=== PATIENT | female | born 1980 | race Caucasian/White ===

== ENCOUNTER 2021-09-03 15:02 | Emergency (ER) | payer BC, SELFPAY ==
--- OUTSIDE RECORDS SUMMARY | 2021-09-03 15:05 | XMS REPORT | Continuity of Care Document ---
:1980 Author Organization [facility] t Address [address] [place] [address] Care Team Providers Name Role Phone Pcp, Does Not Have A Primary Care Physician Paul Smith NP Attending Clinician Georgina AVILES Attending Clinician Unavailable Payers Payer Name Policy Type Policy Number Effective Date Expiration Date [facility] [id number] 2020 PPO/POS 00:00:00 Problems Condition Condition Condition Status Onset Resolution Last Treating Co mments Source Name Details Category Date Date Treatment Clinician Date No known No known Disease Unive rs active active ity of problems problems [facility] Allergies, Adverse Reactions, Alerts Allergy Allergy Status Severity Reaction(s) Onset Inactive Treating Comm ents Source Name Type Date Date Clinician CODEINE DRUG Active Hives Univers INGREDI 9-03 ity of 00:00: [place] 00 Medical Branch Codeine Propensi Active Nausea Only 2005-06 Un holger ty to 2-28 ity of adverse 00:00: [place] reaction 00 Medical s Branch CODEINE DRUG Active NAUSEA ONLY 2005-06 Univ ers INGREDI 2- ity of 00:00: [place] 00 Medical Branch codeine Adverse Active rash [facility] Social History Social Habit Start Date Stop Date Quantity Comments Source Exposure to Not sure [facility] SARS-CoV-2 (event) Medica l Branch Sex Assigned At [birth year] [facility] [place] 00:00:00 00:00:00 Medical Branch Smoking Status Start Date Stop Date Source Unknown if ever smoked [facility] Medical Branch Medications Ordered Filled Start Stop Current Ordering Indication Dosage Frequency Signature Comments Components Source Medication Medication Date Date Medication? Clinician (SIG) Name Name cefTRIAXone 2020- No 1000mg 1,000 mg, Univers (ROCEPHIN) 02-08 IV ity of 1,000 mg in 02:45: 02:19 [place], [place] NaCl 0.9% 00 :00 ONCE, 1 Medical (NS) 50 mL dose, Wed Bran ch MINI-BAG 02/07/21 at 2145, Administer over 30 Minutes, 50 mL
Reas on for Anti-Infec tive: Documented Infection< br>Documen kathy Infection Site: Urine
D uration of Therapy: 7 days ketorolac 2020- No 30mg 30 mg, Unive rs (TORADOL) 02-08 Slow IV ity of injection 02:45: 01:53 [place], [place] 30 mg 00 :00 ONCE, 1 Medical dose, [facility] 02/07/21 at 2145, Routine
membership correspondent approving Restricted medication : MELIZA SMITH cefTRIAXone 2020- No 1000mg 1,000 mg, Univers (ROCEPHIN) 02-08 IV ity of 1,000 mg in 02:45: 02:19 [place], [place] NaCl 0.9% 00 :00 ONCE, 1 Medical (NS) 50 mL dose, [facility] Bran ch MINI-BAG 02/07/21 at 2145, Administer over 30 Minutes, 50 mL
Reas on for Anti-Infec tive: Documented Infection< br>Documen kathy Infection Site: Urine
D uration of Therapy: 7 days ketorolac 2020- No 30mg 30 mg, Unive rs (TORADOL) 02-08 Slow IV ity of injection 02:45: 01:53 [place], [place] 30 mg 00 :00 ONCE, 1 Medical dose, [facility] 02/07/21 at 2145, Routine
membership correspondent approving Restricted medication : MELIZA SMITH acetaminoph 2020- No 650mg 650 mg, U nivers en 02-08 Oral, ity of (TYLENOL) 00:30: 23:53 [place]CE[place] 1 [place] tablet 650 00 :00 dose, [facility] Medi sherif mg 02/07/21 at [place] [address], [facility] ibuprofen No 800mg 800 mg, Uni vers (IBU) 02-08 Oral, ity of tablet 800 00:30: 23:53 ONCE, 1 [place] as mg 00 :00 dose, [facility] 02/07/21 at [place] [address], [facility] acetaminoph No 650mg 650 mg, U nivers en 02-08 Oral, ity of (TYLENOL) 00:30: 23:53 [place]CE, 1 [place] tablet 650 00 :00 dose, [facility] Medi sherif mg 02/07/21 at [place] [address], [facility] ibuprofen 2020- No 800mg 800 mg, Uni vers (IBU) 02-08 Oral, ity of tablet 800 00:30: 23:53 ONCE, 1 [place] as mg 00 :00 dose, [facility] 02/07/21 at [place] [address], [facility] cefdinir 2020- No [id number] 300mg Take 1 U nivers 300 mg 02-07 capsule by ity of capsule 00:00: 04:59 mouth [place] 00 :00 every 12 Medical (twelve) Branch hours for 10 days. cefdinir 2020- No [id number] 300mg Take 1 U nivers 300 mg 02-07 capsule by ity of capsule 00:00: 04:59 mouth [place] 00 :00 every 12 Medical (twelve) Branch hours for 10 days. traMADoL 50 2020- No [id number] 50mg Take 1 Uni vers mg tablet 02-07 tablet by ity of 00:00: 04:59 mouth [place] 00 :00 every 6 Medical (six) Branch hours as needed for Pain (scale 4-6) or Pain (scale 7-10) for up to 7 days. Indication s: acute pain traMADoL 50 2020-2020- No 4647 50mg Take 1 Uni vers mg tablet 02-07 tablet by ity of 00:00: 04:59 mouth [place] 00 :00 every 6 Medical (six) Branch hours as needed for Pain (scale 4-6) or Pain (scale 7-10) for up to 7 days. Indication s: acute pain fluconazole 2020- No [id number] 150mg Take 1 Univers 150 mg 02-07 tablet by ity of tablet 00:00: 04:59 [place] 00 [place] now for 1 Medical dose. Branch fluconazole 2020- No [id number] 150mg Take 1 Univers 150 mg 02-07 tablet by ity of tablet 00:00: 04:59 [place] 00 :[place] now for 1 Medical dose. Branch Citalopram Citalopram Yes [place] take [address] [facility] Hydrobromid Hydrobromid [place] tablet by [facility] mouth once [facility] daily [facility] Levothyroxi Levothyroxi Yes [facility] take [address] [facility] ne Sodium ne Sodium [place] tablet by [facility] - mouth once Memoria daily [facility] Clinics Gabapentin Gabapentin Yes [place] [address] [facility] [place] [facility] Vital Signs Vital Name Observation Time Observation Value Comments Source Body temperature 2021-02-08 01:36:00 37 Michell [facility] Systolic blood 2021-02-08 00:19:00 96 mm[Hg] [facility] Diastolic blood 2021-02-08 00:19:00 63 mm[Hg] [facility] Heart rate 2021-02-08 00:19:00 98 /min [facility] Respiratory rate 2021-02-08 00:19:00 18 /min [facility] Oxygen saturation in 2021-02-08 00:19:00 98 /min [facility] Arterial blood by [facility] Pulse oximetry Branch Body weight 2021-02-07 21:50:00 52.164 kg [facility] Procedures Procedure Date / Time Performed Performing Clinician Sourlucie e URINALYSIS 2021-02-07 23:51:00 Meliza Smith [facility] COVID-19 (ID NOW RAPID 2021-02-07 23:51:00 [facility]iza Smith [facility] NOTICE OF PRIVACY 2021-02-07 21:34:13 Doctor Unassigned, No Univ [facility] PRACTICES Name Medical Branch CONSENT/REFUSAL FOR 2021-02-07 21:33:17 Doctor Unassigned, No [facility] AND Name Medical Branch TREATMENT Encounters Start End Encounter Admission Attending Care Care Encounter Source Date/Time Date/Time Type Type Clinicians Facility Department ID 2021-02-07 2021-02-07 [facility] [id number] Univers 16:52:00 21:35:00 Meliza Paul Hawkins [id number] ity [facility] [id number] [facility] [id number] [place] [id number] Branch 2021-02-07 2021-02-07 Emergency [facility] E[facility] [id number] Univers [facility]:33[facility]-02 2021-02-02 Emergency [facility] ERT [id number] Univers 14:36:00 15:00:[address] [facility] 2020-07-07 2020-07-07 Outpatient [facility] [id number] [facility] 2020-06-01 2020-06-01 Outpatient [facility] [id number] [facility] 2020-05-22 2020-05-22 Outpatient [facility]ML[facility] [id number] [facility] 2019-09-22 2019-09-22 [facility] [id number] [facility] 2019-05-17 2019-05-17 [facility] [id number] [facility] 13:20:00 13:20:00 [facility] Outpat[facility] Clinics Results Test Description Test Time Test Comments Results Result Comments Source CBC W/AUTO DIFF WITH PLATELETS 2021-09-01 09:03:53 Test Item Value Reference Range Interpretation Comme nts WBC (test code = 1001) 9.6 K/UL 3.5-11.0 RBC (test code = 1002) 4.00 M/UL 3.80-5.40 HEMOGLOBIN (test code = 12.4 G/DL 11.5-15.5 1003) HEMATOCRIT (test code = 36.2 % 34.0-45.0 1004) MCV (test code = 1005) 90.5 fL 80.0-99.0 MCH (test code = 1006) 31.0 PG 25.0-33.0 MCHC (test code = 1007) 34.3 G/DL 31.0-36.0 RDW (test code = 1038) 12.7 % 11.5-15.0 NEUTROPHILS (test code = 72.3 % 1008) LYMPHOCYTES (test code = 18.5 % 1010) MONOCYTES (test code = 1011) 6.8 % EOSINOPHILS (test code = 1.5 % 1012) BASOPHILS (test code = 1013) 0.4 % IMMATURE GRANULOCYTES (test 0.5 % code = 1036) NUCLEATED RBCS (test code = 0.0 /100 WBC'S See_Comment [Automated message] The 1065) system which ge nerated this result transmit kathy reference range : 0.0. The reference range was not used to interpr et this result as shaw l/abnormal. PLATELET COUNT (test code = 263 K/UL 796-299 1800) ABSOLUTE NEUTROPHILS (test 6.90 K/UL 1.50-7.50 code = 1066) ABSOLUTE LYMPHOCYTES (test 1.77 K/UL 1.00-4.00 code = 1067) ABSOLUTE MONOCYTES (test 0.65 K/UL 0.20-1.00 code = 1068) ABSOLUTE EOSINOPHILS (test 0.14 K/UL 0.00-0.50 code = 1040) ABSOLUTE BASOPHILS (test 0.04 K/UL 0.00-0.20 code = 1069) ABS IMMATURE GRANULOCYTES 0.05 K/UL 0.00-0.10 (test code = 1020) ABS NUCLEATED RBCS (test 0.00 K/UL 0.00-0.11 code = 15934) TSH, THIRD [id number] 05:52:44 Test Item Value Reference Range Interpretation Comments TSH, THIRD GENERATION (test code 3.400 UIU/ML 0.400-4.100 = 2821) COMPREHENSIVE METABOLIC [id number] 04:22:49 Test Item Value Reference Range Interpretation Comments GLUCOSE (test code = 82 MG/DL 70-99 2216) BUN (test code = 12 MG/DL 6-20 2207) CREATININE (test 0.67 MG/DL 0.60-1.30 code = 2214) eGFR (2020 CKD-EPI) 114 >60 (test code = 66240) ML/MIN/1.73 CALC BUN/CREAT (test 18 RATIO 6-28 code = 2235) SODIUM (test code = 140 MEQ/L 566-891 6706) POTASSIUM (test code 4.2 MEQ/L 3.5-5.4 = 2227) CHLORIDE (test code 101 MEQ/L 95-107 = 221) CARBON DIOXIDE (test 26 MEQ/L 19-31 code = 2206) CALCIUM (test code = 9.1 MG/DL 8.5-10.5 2208) PROTEIN, TOTAL (test 6.2 G/DL 6.1-8.3 code = 222) ALBUMIN (test code = 3.8 G/DL 3.5-5.2 2200) CALC GLOBULIN (test 2.4 G/DL 1.9-3.7 code = 2240) CALC A/G RATIO (test 1.6 RATIO 1.0-2.6 code = 2234) BILIRUBIN, TOTAL <0.2 MG/DL See_Comment [Automated message] (test code = 2207) The syste m which generated this result transmitted ref erence range: <=1.2. T he reference range was not used to int erpret this result as normal/abnormal . ALKALINE PHOSPHATASE 55 U/L 40-112 (test code = 2204) AST (test code = 18 U/L 9-40 2217) ALT (test code = 22 U/L 5-40 UNLE SS 2218) OTHERWISE INDIC ATED, ALL TESTING PER FORMED ATCLINICAL PATH [facility]LOG[facility]ATOR[facility], I [place]. [address] [facility] [place] [address] LABORATORY DIRE CTOR: LATA BOWLING M.D. CLIA NUMBER [id number] CAP ACCREDITATION N O. [id number] 01:15:35 Test Item Value Reference Range Interpretation Comments APPEARANCE (test code = Cloudy Clear A 5053928117) COLOR (test code = Yellow Yellow 3880078607) PH (test code = 4.8-8.0 4749626933) SP GRAVITY (test code = 1.003-1.030 2686228980) GLU U QUAL (test code = Normal Normal 1129469707) BLOOD (test code = 2+ Negative A 7137274734) KETONES (test code = Negative Negative 8511501566) PROTEIN (test code = 100 mg/dL Negative A 2887-8) UROBILIN (test code = 4.0 mg/dL Normal A 8521853192) BILIRUBIN (test code = Negative Negative 4373992683) NITRITE (test code = Negative Negative 7859923919) LEUK JOVANY (test code = 250/uL Negative A 0382251960) RBC/HPF (test code = See_Comment H [Autom ated message] 6740183708) The system [employer] generated this result transmit kathy reference range : 0 - 3 HPF. The refe rence range was not u sed to interpret th is result as normal/abnormal . WBC/HPF (test code = >182 See_Comment H [Autom ated message] 8714208870) The system [employer] generated this result transmit kathy reference range : 0 - 5 HPF. The refe rence range was not u sed to interpret th is result as normal/abnormal . BACTERIA (test code = Many Negative A 9179979345) MUCOUS (test code = Slight Negative LPF A 1207969769) AMORPHOUS (test code = Rare Rare HPF 9894268738) SQ EPITH (test code = HPF 6667938427) YEAST BUD (test code = See_Comment H [Aut omated message] 2335295433) The system [employer] generated this result transmit kathy reference range : <=1 HPF. The refere nce range was not u sed to interpret th is result as normal/abnormal . Lab Interpretation (test Abnormal code = 07503-3) [facility] Test Item Value Reference Range Interpretation Comments APPEARANCE (test code = Cloudy Clear A 3477522691) COLOR (test code = Yellow Yellow 2009251546) PH (test code = 4.8-8.0 4083985672) SP GRAVITY (test code = 1.003-1.030 1737415630) GLU U QUAL (test code = Normal Normal 9904696227) BLOOD (test code = 2+ Negative A 5823463932) KETONES (test code = Negative Negative 7603612841) PROTEIN (test code = 100 mg/dL Negative A 2887-8) UROBILIN (test code = 4.0 mg/dL Normal A 8369059275) BILIRUBIN (test code = Negative Negative 0523465513) NITRITE (test code = Negative Negative 2696858838) LEUK JOVANY (test code = 250/uL Negative A 2587231765) RBC/HPF (test code = See_Comment H [Autom ated message] 7205095812) The system [employer] generated this result transmit kathy reference range : 0 - 3 HPF. The refe rence range was not u sed to interpret th is result as normal/abnormal . WBC/HPF (test code = >182 See_Comment H [Autom ated message] 9147347315) The system [employer] generated this result transmit kathy reference range : 0 - 5 HPF. The refe rence range was not u sed to interpret th is result as normal/abnormal . BACTERIA (test code = Many Negative A 3271642971) MUCOUS (test code = Slight Negative LPF A 2598821500) AMORPHOUS (test code = Rare Rare HPF 8429256730) SQ EPITH (test code = HPF 7133594987) YEAST BUD (test code = See_Comment H [Aut omated message] 2271218296) The system [employer] generated this result transmit kathy reference range : <=1 HPF. The refere nce range was not u sed to interpret th is result as normal/abnormal . Lab Interpretation (test Abnormal code = 05775-1) [facility]ID [facility]2021-02-08 00:40:45 Test Item Value Reference Range Interpretation Comments SARS-CoV-2 Rapid ID NOW Not Detected Not Detected (test code = 78877-6) JESUS (test code = JESUS) ID NOW COVID-19 Assay is an isothermal nucleic acid amplification test intended for the qualitative detection of nucleic acid from SARS-CoV-2 viral RNA in nasopharyngeal (SETTER OFF) specimens. It is used under Emergency Use Authorization (EUA) by FDA. The limit of detection (LOD) of the assay is 125 Genome Equivalents/mL. A positive result is indicative of the presence of SARS-CoV-2 RNA. ?Clinical correlation with patient history and other diagnostic information is necessary to determine patient infection status. A negative (Not Detected) result does not preclude SARS-CoV-2 infection. In patients with clinical symptoms and other tests that are consistent with SARS-CoV-2 infection, negative results should be treated as presumptive negative and a new specimen should be tested with alternative PCR molecular test. Invalid: Please collect a new specimen for repeat patient testing if clinically indicated. Lab Interpretation Normal (test code = 82723-4) [facility]ID [facility]2021-02-08 00:40:45 Test Item Value Reference Range Interpretation Comments SARS-CoV-2 Rapid ID NOW Not Detected Not Detected (test code = 14236-8) JESUS (test code = JESUS) ID NOW COVID-19 Assay is an isothermal nucleic acid amplification test intended for the qualitative detection of nucleic acid from SARS-CoV-2 viral RNA in nasopharyngeal (SETTER OFF) specimens. It is used under Emergency Use Authorization (EUA) by FDA. The limit of detection (LOD) of the assay is 125 Genome Equivalents/mL. A positive result is indicative of the presence of SARS-CoV-2 RNA. ?Clinical correlation with patient history and other diagnostic information is necessary to determine patient infection status. A negative (Not Detected) result does not preclude SARS-CoV-2 infection. In patients with clinical symptoms and other tests that are consistent with SARS-CoV-2 infection, negative results should be treated as presumptive negative and a new specimen should be tested with alternative PCR molecular test. Invalid: Please collect a new specimen for repeat patient testing if clinically indicated. Lab Interpretation Normal (test code = 86281-4) [facility]
--- NOTE | 2021-09-03 19:32 | ER ---
Nurse's Notes [facility] [place] [facility] Name: Arlene Persaud Age: 41 yrs Sex: Female : 1980 Arrival Date: 09/03/2021 Time: 15:05 Bed 10 Private MD: Diagnosis: Presentation: 09/03 15:23 Chief complaint: Patient states: L lower back pain and fever that started yesterday, ph also reports fever. Denies urinary symptoms. Also denies N/V. Coronavirus screen: Vaccine status: Patient reports receiving the 1st dose of the Covid vaccine. Ebola Screen: No symptoms or risks identified at this time. Initial Sepsis Screen: Does the patient meet any 2 criteria? No. Patient's initial sepsis screen is negative. Does the patient have a suspected source of infection? No. Patient's initial sepsis screen is negative. Risk Assessment: Do you want to hurt yourself or someone else? Patient reports no desire to harm self or others. Onset of symptoms was September 03, 2021. 15:23 Method Of Arrival: Ambulatory 15:23 Acuity: NELSY 3 ph Triage Assessment: 15:25 General: Appears in no apparent distress. uncomfortable, Behavior is cooperative, ph appropriate for age, Reports fever for 12-24 hours. Pain: Complains of pain in right low back. Neuro: Level of Consciousness is awake, alert, obeys commands, Oriented to person, place, time, situation. Cardiovascular: Capillary refill < 3 seconds in bilateral fingers Patient's skin is warm and dry. Respiratory: No deficits noted. : Reports pain in left in lower back. Derm: Skin is intact. Historical: - Allergies: 15:24 Codeine; ph - PMHx: 15:24 hyperthyroidism; lymph removed; ph - Immunization history:: Adult Immunizations unknown. - Social history:: Smoking status: Patient reports the use of cigarette tobacco products, smokes one-half pack cigarettes per day. Vital Signs: 15:23 BP 104 / 36; Pulse 89; Resp 18; Temp 99.7; Pulse Ox 100% on R/A; Weight 45.36 kg; ph Height 4 ft. 11 in. (149.86 cm); 15:23 Body Mass Index 20.20 (45.36 kg, 149.86 cm) ph ED Course: 15:05 Patient arrived in ED. ds1 15:07 Fritz Soto NP is PHCP. pm1 15:07 Murtaza Cervantes MD is Attending Physician. pm1 15:24 Triage completed. ph 15:25 Arm band placed on Patient placed in waiting room, Patient notified of wait time. ph Administered Medications: No medications were administered Outcome: 19:31 Patient left the ED. ab2 Signatures: Melissa Solomon ds1 Ashia Huang RN RN Fritz Soto NP [employer] pm1 Mendez Ash ab2
--- NOTE | 2021-09-03 19:32 | EDPHYS ---
Physician Documentation [facility] Name: Alrene Persaud Age: 41 yrs Sex: Female : 1980 Arrival Date: 09/03/2021 Time: 15:05 Bed 10 Private MD: ED Physician Murtaza Cervantes HPI: 09/03 15:25 This 41 yrs old Female presents to ER via Ambulatory with complaints of Fever, Kidney pm1 Pain. 15:25 The patient complains of pain in the left low back. The pain does not radiate. Onset: pm1 The symptoms/episode began/occurred yesterday. Modifying factors: The symptoms are alleviated by nothing. the symptoms are aggravated by nothing. Associated signs and symptoms: Pertinent positives: fever, Pertinent negatives: diarrhea, dysuria, nausea, vomiting. Severity of pain: in the emergency department the pain is actually worse. The patient has experienced a previous episode, many years ago, and the symptoms today are exactly the same, kidney infection. The patient has not recently seen a physician. Patient is currently staying in [facility]. Patient given ibuprofen and Tylenol at [facility] prior to arrival. Historical: - Allergies: 15:24 Codeine; ph - PMHx: 15:24 hyperthyroidism; lymph removed; ph - Immunization history:: Adult Immunizations unknown. - Social history:: Smoking status: Patient reports the use of cigarette tobacco products, smokes one-half pack cigarettes per day. ROS: 15:25 Constitutional: Negative for fever, chills, and weight loss, Cardiovascular: Negative pm1 for chest pain, palpitations, and edema, Respiratory: Negative for shortness of breath, cough, wheezing, and pleuritic chest pain, Abdomen/GI: Negative for abdominal pain, nausea, vomiting, diarrhea, and constipation. 15:25 : Negative for injury, bleeding, discharge, and swelling, MS/Extremity: Negative for injury and deformity, Skin: Negative for injury, rash, and discoloration, Neuro: Negative for headache, weakness, numbness, tingling, and seizure. 15:25 Back: Positive for flank pain, on the left. 15:25 All other systems are negative. Exam: 15:25 Constitutional: This is a well developed, well nourished patient who is awake, alert, pm1 and in no acute distress. Head/Face: Normocephalic, atraumatic. 15:25 Skin: Warm, dry with normal turgor. Normal color with no rashes, no lesions, and no evidence of cellulitis. MS/ Extremity: Pulses equal, no cyanosis. Neurovascular intact. Full, normal range of motion. 15:25 Cardiovascular: Exam negative for acute changes, Rate: normal, Rhythm: regular, Pulses: no pulse deficits are appreciated. 15:25 Respiratory: Exam negative for acute changes, respiratory distress, shortness of breath, Breath sounds: are clear throughout. 15:25 Abdomen/GI: Exam negative for acute changes, Inspection: abdomen appears normal, Palpation: abdomen is soft and non-tender, in all quadrants. 15:25 Back: pain, that is moderate, of the left low back. 15:25 Neuro: Exam negative for acute changes, Orientation: is normal, Mentation: is normal, Motor: is normal, moves all fours. Vital Signs: 15:23 BP 104 / 36; Pulse 89; Resp 18; Temp 99.7; Pulse Ox 100% on R/A; Weight 45.36 kg; ph Height 4 ft. 11 in. (149.86 cm); 15:23 Body Mass Index 20.20 (45.36 kg, 149.86 cm) ph MDM: 15:28 Data reviewed: vital signs. Data interpreted: Pulse oximetry: on room air is 100 %. pm1 Interpretation: normal. 15:34 Patient medically screened. pm1 09/03 15:25 Order name: IV Saline Lock pm1 09/03 15:25 Order name: Labs collected and sent pm1 09/03 15:25 Order name: Urine Dipstick-Ancillary (obtain specimen) pm1 09/03 15:25 Order name: Urine Test (obtain specimen) pm1 Administered Medications: No medications were administered Disposition Summary: 09/03/21 19:31 Eloped Disposition: before being seen by provider ab2 Reason: wait time ab2 Addendum: 09/10/2021 19:11 Co-signature as Attending Physician, Murtaza Cervantes MD. r n Signatures: Dispatcher [employer] EDMurtaza Winters MD MD rn Hall, Patricia, RN RN ph Marinas, Patrick, CHIVO CNC OPERATOR MACHINIST pm1 Mendez Ash 2
[2021-09-03 19:38] VITALS: BP 104/36; TEMP 99.7; O2SAT 100
== END 2021-09-03 19:31 | disposition left against medical advice (07) ==
LOC: ER 15:02
DX: Z53.21 Procedure and treatment not carried out due to patient leaving prior to being seen by health care provider (principal)
CPT/HCPCS: 99281

== ENCOUNTER 2021-09-03 22:59 | Inpatient (IN) | payer SELFPAY ==
--- OUTSIDE RECORDS SUMMARY | 2021-09-03 23:02 | XMS REPORT | Continuity of Care Document ---
:1980 Author Organization [facility] t Address [address] [place] [address] [address]. [address] [place] [address] Care Team Providers Name Role Phone Pcp, Does Not Have A Primary Care Physician Paul Smith NP Attending Clinician Georgina AVILES Attending Clinician Unavailable Payers Payer Name Policy Type Policy Number Effective Date Expiration Date [facility] [id number] 2020 PPO/POS 00:00:00 Problems Condition Condition Condition Status Onset Resolution Last Treating Co mments Source Name Details Category Date Date Treatment Clinician Date No known No known Disease Unive rs active active ity of problems problems [facility] [place] [facility] Allergies, Adverse Reactions, Alerts Allergy Allergy Status Severity Reaction(s) Onset Inactive Treating Comm ents Source Name Type Date Date Clinician CODEINE DRUG Active Hives [facility] INGREDI 02-02 ity of 00:00: [place] 00 Medical Branch Codeine Propensi Active Nausea Only 2005-06 Un holger ty to 2-28 ity of adverse 00:00: [place] reaction 00 Medical s Branch CODEINE DRUG Active NAUSEA ONLY 2005-06 Univ ers INGREDI 07-30 ity of 00:00: [place] 00 Medical Branch codeine Adverse Active rash [facility] Social History Social Habit Start Date Stop Date Quantity Comments Source Exposure to Not sure [facility] SARS-CoV-2 (event) Medica l Branch Sex Assigned At [birth year] [facility] 00:00:00 00:00:00 Medical Branch Smoking Status Start Date Stop Date Source Unknown if ever smoked [facility] Medications Ordered Filled Start Stop Current Ordering Indication Dosage Frequency Signature Comments Components Source Medication Medication Date Date Medication? Clinician (SIG) Name Name cefTRIAXone 2020- No 1000mg 1,000 mg, Univers (ROCEPHIN) 02-08 IV ity of 1,000 mg in 02:45: 02:19 [place], [place] NaCl 0.9% 00 :00 ONCE, 1 [...] mg 00 :00 ONCE, 1 Medical dose, [facility] 02/07/21 at 2145, Routine
merchandise flow team member approving Restricted medication : MELIZA SMITH cefTRIAXone 2020- No 1000mg 1,000 mg, Univers (ROCEPHIN) 02-08 IV ity of 1,000 mg in 02:45: 02:19 [place] NaCl 0.9% 00 :00 ONCE, 1 [...] mg 00 :00 ONCE, 1 Medical dose, [facility] 02/07/21 at 2145, Routine
merchandise flow team member approving Restricted medication : MELIZA SMITH acetaminoph 2020- No 650mg 650 mg, U nivers en 02-08 Oral, ity of (TYLENOL) 00:30: 23:53 ONCE, 1 [place] tablet 650 00 :00 dose, [facility] Medi sherif mg 02/07/21 at [place] [address], [facility] ibuprofen No 800mg 800 mg, Uni vers (IBU) 02-08 Oral, ity of tablet 800 00:30: 23:53 ONCE, 1 [place] as mg 00 :00 dose, [facility] 02/07/21 at [place] [address], [facility] acetaminoph No 650mg 650 mg, U nivers en 02-08 Oral, ity of (TYLENOL) 00:30: 23:53 ONCE, 1 [place] tablet 650 00 :00 dose, [facility] Medi sherif mg 02/07/21 at [place] [address], [facility] ibuprofen 2020- No 800mg 800 mg, Uni vers (IBU) 02-08 Oral, ity of tablet 800 00:30: 23:53 ONCE, 1 [place] as mg 00 :00 dose, [facility] 02/07/21 at [place] [address], [facility] cefdinir 2020- No [id number] 300mg Take 1 U nivers 300 mg 02-07 capsule by ity of capsule 00:00: 04:59 mouth [place] 00 :00 every 12 Medical (twelve) Branch hours for 10 days. cefdinir 2020- No [id number] 300mg Take 1 U nivers 300 mg [...] Indication s: acute pain fluconazole 2020- No [id number] 150mg Take 1 Univers 150 mg 02-07 tablet by ity of tablet 00:00: 04:59 [place] 00 [place] now for 1 Medical dose. Branch fluconazole 2020- No [id number] 150mg Take 1 Univers 150 mg 02-07 tablet by ity of tablet 00:00: 04:59 [place] 00 [place] now for 1 Medical dose. Branch Citalopram Citalopram Yes [place] take [address] [facility] [address] Hydrobromid Hydrobromid [place] tablet by [facility] mouth once Memoria daily [facility] ent [facility] Levothyroxi Levothyroxi Yes [place] take [address] [facility] ne Sodium ne Sodium [place] tablet by [facility] - mouth once Memoria daily [facility] ent Clinics Gabapentin Gabapentin Yes [place] [address] [facility] [place] [facility] Vital Signs Vital Name Observation Time Observation Value Comments Source Body temperature 2021-02-08 01:36:00 37 Michell [facility] Systolic blood 2021-02-08 00:19:00 96 mm[Hg] [facility] Diastolic blood 2021-02-08 00:19:00 63 mm[Hg] [facility] Heart rate 2021-02-08 00:19:00 98 /min [facility] Respiratory rate 2021-02-08 00:19:00 18 /min [facility] Oxygen saturation in 2021-02-08 00:19:00 98 /min [facility] Arterial blood by [facility] Pulse oximetry Branch Body weight 2021-02-07 21:50:00 52.164 kg [facility] Procedures Procedure Date / Time Performed Performing Clinician Sourc e URINALYSIS 2021-02-07 23:51:00 Meliza Smith [facility] COVID-19 (ID NOW RAPID 2021-02-07 23:51:00 Meliza Smith [facility] NOTICE OF PRIVACY 2021-02-07 21:34:13 Doctor Unassigned, No Univ [facility] PRACTICES Name Medical Branch CONSENT/REFUSAL FOR 2021-02-07 21:33:17 Doctor Unassigned, No [facility]IS AND Name Medical Branch TREATMENT Encounters Start End Encounter Admission Attending Care Care Encounter Source Date/Time Date/Time Type Type Clinicians Facility Department ID 2021-02-07 2021-02-07 [id number] Univers 16:52:00 21:35:00 Meliza Paul Hawkins [id number] ity [facility] [id number] [facility] [id number] [place] [id number] Branch 2021-02-07 2021-02-[address] [facility] ERT [id number] Univers 16:33:00 16:33:00 [facility] 2021-02-02 2021-02-02 Emergency X [place], [facility] ERT [id number] Univers 14:36:00 15:00:00 NORIS ity [facility] 2020-07-07 2020-07-07 Outpatient [facility]LMLC [facility] [id number] [facility] 2020-06-01 2020-06-01 Outpatient [facility]ML[facility] [id number] [facility] 2020-05-22 2020-05-22 Outpatient STLMLC [facility] [id number] [facility] 2019-09-22 2019-09-22 [facility] [id number] [facility] 2019-05-17 2019-05-17 [facility] [id number] 13:20:00 13:20:00 [facility] Family Medicine l Medicine Outpati ent Clinics [...] PLATELET COUNT (test code = 263 K/UL 491-561 5034) ABSOLUTE NEUTROPHILS (test 6.90 K/UL 1.50-7.50 code [...] RBCS (test 0.00 K/UL 0.00-0.11 code = 10985) TSH, THIRD [id number] 05:52:44 Test Item Value Reference Range Interpretation Comments TSH, THIRD GENERATION (test code 3.400 UIU/ML 0.400-4.100 = 2821) COMPREHENSIVE METABOLIC [id number] 04:22:49 Test Item Value Reference Range Interpretation Comments GLUCOSE (test code = 82 MG/DL 70-99 2216) BUN (test code = 12 MG/DL 6-20 2207) CREATININE (test 0.67 MG/DL 0.60-1.30 code = 2214) eGFR (2020 CKD-EPI) 114 >60 (test code = 62091) ML/MIN/1.73 CALC BUN/CREAT (test 18 RATIO 6-28 code = 2235) SODIUM (test code = 140 MEQ/L 934-230 2512) POTASSIUM (test code 4.2 MEQ/L 3.5-5.4 = 2227) CHLORIDE (test code 101 MEQ/L 95-107 = 2214) CARBON DIOXIDE (test 26 MEQ/L 19-31 code [...] [facility], [place]. [address] [facility] [place] [address] LABORATORY DIRE CTOR: LATA BOWLING M.D. CLIA NUMBER [id number] CAP ACCREDITATION N O. [id number] 01:15:35 Test Item Value Reference Range Interpretation Comments APPEARANCE (test code = Cloudy Clear A 0438619464) COLOR (test code = Yellow Yellow 5943921260) PH (test code = 4.8-8.0 2729740443) SP GRAVITY (test code = 1.003-1.030 1395247723) GLU U QUAL (test code = Normal Normal 2254781305) BLOOD (test code = 2+ Negative A 0010812169) KETONES (test code = Negative Negative 8415778547) PROTEIN (test code = 100 mg/dL Negative A 2887-8) UROBILIN (test code = 4.0 mg/dL Normal A 8150119343) BILIRUBIN (test code = Negative Negative 5334027356) NITRITE (test code = Negative Negative 8626104951) LEUK JOVANY (test code = 250/uL Negative A 0171903698) RBC/HPF (test code = See_Comment H [Autom ated message] 1837014385) The system [employer] generated this result transmit kathy reference range : 0 - 3 HPF. The refe rence range was not u sed to interpret th is result as normal/abnormal . WBC/HPF (test code = >182 See_Comment H [Autom ated message] 8664244080) The system [employer] generated this result transmit kathy reference range : 0 - 5 HPF. The refe rence range was not u sed to interpret th is result as normal/abnormal . BACTERIA (test code = Many Negative A 3231204027) MUCOUS (test code = Slight Negative LPF A 1005932743) AMORPHOUS (test code = Rare Rare HPF 5161001080) SQ EPITH (test code = HPF 1930929271) YEAST BUD (test code = See_Comment H [Aut omated message] 4477687096) The system [employer] generated this result transmit kathy reference range : <=1 HPF. The refere nce range was not u sed to interpret th is result as normal/abnormal . Lab Interpretation (test Abnormal code = 34853-4) [facility]35 Test Item Value Reference Range Interpretation Comments APPEARANCE (test code = Cloudy Clear A 4464048104) COLOR (test code = Yellow Yellow 3011465084) PH (test code = 4.8-8.0 2205688953) SP GRAVITY (test code = 1.003-1.030 2151563038) GLU U QUAL (test code = Normal Normal 9520106876) BLOOD (test code = 2+ Negative A 4683242198) KETONES (test code = Negative Negative 0037479280) PROTEIN (test code = 100 mg/dL Negative A 2887-8) UROBILIN (test code = 4.0 mg/dL Normal A 7893126662) BILIRUBIN (test code = Negative Negative 7347442208) NITRITE (test code = Negative Negative 6926161214) LEUK JOVANY (test code = 250/uL Negative A 8389678886) RBC/HPF (test code = See_Comment H [Autom ated message] 2968358364) The system [employer] generated this result transmit kathy reference range : 0 - 3 HPF. The refe rence range was not u sed to interpret th is result as normal/abnormal . WBC/HPF (test code = >182 See_Comment H [Autom ated message] 3038281567) The system [employer] generated this result transmit kathy reference range : 0 - 5 HPF. The refe rence range was not u sed to interpret th is result as normal/abnormal . BACTERIA (test code = Many Negative A 9385174900) MUCOUS (test code = Slight Negative LPF A 8321678985) AMORPHOUS (test code = Rare Rare HPF 3594856902) SQ EPITH (test code = HPF 6545585751) YEAST BUD (test code = See_Comment H [Aut omated message] 0875165945) The system [employer] generated this result transmit kathy reference range : <=1 HPF. The refere nce range was not u sed to interpret th is result as normal/abnormal . Lab Interpretation (test Abnormal code = 60941-9) [facility] NOW [facility]APID [facility])2021-02-08 00:40:45 Test Item Value Reference Range Interpretation Comments SARS-CoV-2 Rapid ID NOW Not Detected Not Detected (test code = 48238-5) JESUS (test code = JESUS) ID NOW COVID-19 Assay is an isothermal nucleic acid amplification test intended for the qualitative detection of nucleic acid from SARS-CoV-2 viral RNA in nasopharyngeal (POLLS OR SURVEYS INTERVIEWER) specimens. It is used under Emergency Use [...] indicated. Lab Interpretation Normal (test code = 55325-0) [facility] NOW RAPID [facility])2021-02-08 00:40:45 Test Item Value Reference Range Interpretation Comments SARS-CoV-2 Rapid ID NOW Not Detected Not Detected (test code = 17288-9) JESUS (test code = JESUS) ID NOW COVID-19 Assay is an isothermal nucleic acid amplification test intended for the qualitative detection of nucleic acid from SARS-CoV-2 viral RNA in nasopharyngeal (POLLS OR SURVEYS INTERVIEWER) specimens. It is used under Emergency Use [...] indicated. Lab Interpretation Normal (test code = 13858-3) [facility]
[2021-09-04] MEDS ORDERED: ONDANSETRON 4 MG/2 ML VIAL ONE ×2 (01:12→14:36)
[2021-09-04] MEDS ORDERED: NA CHLORIDE 0.9% 1,000 ML ONE ×2 (01:12→04:42)
[2021-09-04 01:30] LABS: Absolute Lymphocytes (CBC) 0.7 K/uL (0.7-4.9); Hematocrit 34.6 % (36.0-45.0); RBC Red Blood Cell Count 3.77 M/uL (3.86-4.86)
[2021-09-04 01:48] LABS: ALT/SGPT 131 U/L (12-78); AST/SGOT 67 U/L (15-37); Albumin 2.7 g/dL (3.4-5.0); Alkaline Phosphatase 56 U/L (45-117); BUN Blood Urea Nitrogen 11 mg/dL (7-18); Bicarbonate 27 mmol/L (21-32); Bilirubin Total 0.3 mg/dL (0.2-1.0); Glucose Level 149 mg/dL (74-106); Lipase 90 U/L (73-393); Potassium 4.3 mmol/L (3.5-5.1); Protein, Total 6.2 g/dL (6.4-8.2); Sodium Level 134 mmol/L (136-145)
[2021-09-04 02:23] LABS: Urine Bacteria >50 /HPF (<20)
[2021-09-04 02:24] LABS: Urine RBC <5 /HPF (NONE SEEN)
[2021-09-04] MEDS ORDERED: DIPHENHYDRAMINE 50 MG/ML VIAL ONE (02:24)
[2021-09-04] MEDS ORDERED: METOCLOPRAMIDE 10 MG/2mL INJ ONE (02:24)
[2021-09-04] MEDS ORDERED: KETOROLAC 30 MG/ML INJ ONE ×2 (02:24→08:09)
[2021-09-04] MEDS ORDERED: NA CHLORIDE 0.9% 50 ML ONE (02:24)
[2021-09-04] MEDS ORDERED: CEFTRIAXONE 1000 MG/VIAL ONE ×2 (02:48→08:09)
--- NOTE | 2021-09-04 03:32 | EDPHYS ---
Physician Documentation [facility] [place] [facility] Name: Arlene Persaud Age: 41 yrs Sex: Female : 1980 Arrival Date: 09/03/2021 Time: 23:00 Bed 8 Private MD: SAMY Physician Lowell Apple HPI: 09/04 01:20 This 41 yrs old Female presents to ER via Wheelchair with complaints of Flank Pain. pm1 01:20 The patient complains of pain in the left low back. The pain does not radiate. Onset: pm1 The symptoms/episode began/occurred yesterday. Modifying factors: The symptoms are alleviated by nothing. the symptoms are aggravated by nothing. Associated signs and symptoms: Pertinent positives: fever, Pertinent negatives: diarrhea, dysuria, nausea, vomiting, Diarrhea. Severity of pain: in the emergency department the pain is actually worse. The patient has experienced a previous episode, many years ago, and the symptoms today are exactly the same, kidney infection. The patient has not recently seen a physician. Patient is currently staying at [facility], patient given ibuprofen and Tylenol at [facility] prior to arrival. 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 - Social history:: Smoking status: Patient reports the use of cigarette tobacco products, smokes one-half pack cigarettes per day, Patient uses street drugs, Methamphetamine (Meth). ROS: 09/04 02:47 Cardiovascular: Negative for chest pain, palpitations, and edema, Respiratory: Negative pm1 for shortness of breath, cough, wheezing, and pleuritic chest pain. Abdomen/GI: Negative for abdominal pain, nausea, vomiting, diarrhea, and constipation. : Negative for injury, bleeding, discharge, and swelling, MS/Extremity: Negative for injury and deformity, Skin: Negative for injury, rash, and discoloration, Neuro: Negative for headache, weakness, numbness, tingling, and seizure. Constitutional: Positive for fever. Back: Positive for flank pain. All other systems are negative. Exam: 02:47 Constitutional: This is a well developed, well nourished patient who is awake, alert, pm1 and in no acute distress. Head/Face: Normocephalic, atraumatic. 02:47 Skin: Warm, dry with normal turgor. Normal color with no rashes, no lesions, and no evidence of cellulitis. MS/ Extremity: Pulses equal, no cyanosis. Neurovascular intact. Full, normal range of motion. 02:47 Cardiovascular: Exam negative for acute changes, Rate: normal, Rhythm: regular, Pulses: no pulse deficits are appreciated. 02:47 Respiratory: Exam negative for acute changes, respiratory distress, shortness of breath, Breath sounds: are clear throughout. 02:47 Abdomen/GI: Exam negative for acute changes, Inspection: abdomen appears normal, Palpation: abdomen is soft and non-tender, in all quadrants. 02:47 Back: pain, that is mild, of the left low back. 02:47 Neuro: Exam negative for acute changes, Orientation: is normal, Mentation: is normal, Motor: is normal, moves all fours. Vital Signs: 09/03 23:04 BP 84 / 47; Pulse 78; Resp 18; Temp 97.8(O); Pulse Ox 93% on R/A; Weight 45.36 kg (R); lp1 Height 4 ft. 11 in. (149.86 cm); Pain 9/10; 23:06 BP 81 / 69; lp1 04/05 01:00 BP 104 / 64; Pulse 76; Resp 14; Pulse Ox 95% on R/A; vc1 04:08 BP 129 / 104; Pulse 68; Resp 14 S; Pulse Ox 100% on R/A; as6 09/03 23:04 Body Mass Index 20.20 (45.36 kg, 149.86 cm) lp1 MDM: 00:51 Patient medically screened. pm1 03:02 Data reviewed: vital signs. Data interpreted: Pulse oximetry: on room air is 95 %. pm1 Interpretation: normal. 03:30 Counseling: I had a detailed discussion with the patient and/or guardian regarding: the pm1 historical points, exam findings, and any diagnostic results supporting the discharge/admit diagnosis, lab results, radiology results, the need for further work-up and treatment in the hospital. 03:32 Physician consultation: Sparkle CAMPA was called at 03:32, was contacted at 03:32, pm1 regarding admission, patient's condition, and will see patient in ED. 09/04 00:51 Order name: CBC with Diff; Complete Time: 01:49 pm09/04 00:51 Order name: CMP; Complete Time: 01:49 pm09/04 00:51 Order name: Lipase; Complete Time: 01:49 pm09/04 00:51 Order name: Urine Microscopic Only; Complete Time: 02:31 pm09/04 02:26 Order name: Urine Culture EDMS 09/04 05:41 Order name: Lactate EDMS 09/04 00:51 Order name: CT Abd/Pelvis - IV Contrast Only pm1 09/04 05:52 Order name: T4 Free EDMS 09/04 05:52 Order name: Thyroid Stimulating Hormone EDMS 09/04 12:36 Order name: COVID-19 SARS RT PCR (Document "Date of Onset" if Symptomatic) bd 09/04 14:05 Order name: SARS-COV-2 RT PCR EDNH 09/04 00:51 Order name: IV Saline Lock; Complete Time: 02:25 pm09/04 00:51 Order name: Labs collected and sent; Complete Time: 02:25 pm09/04 00:51 Order name: Urine Dipstick-Ancillary (obtain specimen); Complete Time: 02:25 pm09/04 00:51 Order name: Urine Test (obtain specimen); Complete Time: 02:25 pm1 Administered Medications: 01:00 Drug: NS 0.9% 1000 ml Route: IV; Rate: 1 bolus; Site: right forearm; vc1 02:54 Follow up: IV Status: Completed infusion; IV Intake: 1000ml vc1 01:00 Drug: Zofran (Ondansetron) 4 mg Route: IVP; Site: right forearm; vc1 02:55 Follow up: Response: No adverse reaction; Marked relief of symptoms; Nausea is decreasedvc1 02:45 Drug: Benadryl (diphenhydrAMINE) 12.5 mg Route: IVP; Site: right forearm; vc1 04:10 Follow up: Response: No adverse reaction as6 02:45 Drug: Reglan (metoCLOPramide) 10 mg Route: IVP; Site: right forearm; vc1 04:10 Follow up: Response: No adverse reaction as6 02:48 Drug: Ketorolac 30 mg Route: IVP; Site: right forearm; vc1 04:10 Follow up: Response: No adverse reaction as6 02:53 Drug: Rocephin (cefTRIAXone) 1 grams Route: IV; Rate: calculated rate; Site: right vc1 forearm; 04:10 Follow up: Response: No adverse reaction; IV Status: Completed infusion; IV Intake: [id number] Disposition Summary: 09/04/21 03:31 Hospitalization Ordered Hospitalization Status: Observation pm1 Provider: Brandon Burgos pm1 Condition: Stable pm1 Problem: new pm1 Symptoms: have improved pm1 Bed/Room Type: Standard pm1 Location: Telemetry/MedSurg (observation)(09/04/21 14:55) bd Room Assignment: [facility](09/04/21 14:55) bd Diagnosis - Pyelonephritis acute pm1 - Acute cystitis pm1 Discharge Instructions: - Discharge Summary Sheet pm1 - Urinary Tract Infection, Adult pm1 Forms: - Medication Reconciliation Form pm1 - SBAR form pm1 Prescriptions: - Bactrim DS 800-160 mg Oral Tablet - take 1 tablet by ORAL route every 12 hours for 10 days; 20 tablet; Refills: 0, pm1 Product Selection Permitted Addendum: 09/06/2021 07:19 Co-signature as Attending Physician, Lowell Apple MD I agree with the assessment and c taveras plan of care. Signatures: Dispatcher [employer] EDMS Teresa Packer Corey, MD MD cha Pena, Laura RN RN lp1 Shantal Perez RN RN Fritz Dickerson, [employer]IV[employer] CUSTOMER SERVICE REPRESENTATIVE TEACHER pm1 Giselle Brooks RN RN vc1 Rober Gan RN as6 Corrections: (The following items were deleted from the chart) 09/04 02:48 01:24 Constitutional: Negative for fever, chills, and weight loss, pm1 pm1 04:28 03:31 Telemetry/MedSurg (observation) pm1 cg 04:28 03:31 pm1 cg 14:55 04:28 [facility] ER HOLD bd 14:55 04:28 ERHOLD- cg bd
--- NOTE | 2021-09-04 03:32 | ER ---
Nurse's Notes [facility] Name: Arlene Persaud Age: 41 yrs Sex: Female : 1980 Arrival Date: 09/03/2021 Time: 23:00 Bed 8 Private MD: Diagnosis: Pyelonephritis acute;Acute cystitis Presentation: 09/03 23:04 Chief complaint: Patient states: Left flank pain and fever that began yesterday, with lp1 headache; Reports feeling faint. Coronavirus screen: At this time, the client does not indicate any symptoms associated with coronavirus-19. Ebola Screen: No symptoms or risks identified at this time. Initial Sepsis Screen: Does the patient meet any 2 criteria? Mean Arterial Pressure (MAP) < 65. Does the patient have a suspected source of infection? No. Patient's initial sepsis screen is negative. Risk Assessment: Do you want to hurt yourself or someone else? Patient reports no desire to harm self or others. Onset of symptoms was September 03, 2021. 23:04 Method Of Arrival: Wheelchair lp1 23:04 Acuity: NELSY 2 lp1 Triage Assessment: 09/04 01:00 General: Appears uncomfortable, ill, slender, Behavior is calm, cooperative, vc1 appropriate for age. Pain: Complains of pain in left low back and head Pain does not radiate. Pain currently is 8 out of 10 on a pain scale. Pain began 2-3 days ago. Is continuous. Neuro: Level of Consciousness is awake, alert, obeys commands, lethargic, Oriented to person, place, time, situation, Appropriate for age. Cardiovascular: Patient's skin is warm and dry. Respiratory: Airway is patent Respiratory effort is even, unlabored, Respiratory pattern is regular, symmetrical. GI: Abdomen is flat, non-distended. : Urine is cloudy, Reports pain in left flank(s). 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 - Social history:: Smoking status: Patient reports the use of cigarette tobacco products, smokes one-half pack cigarettes per day, Patient uses street drugs, Methamphetamine (Meth). Screenin/05 02:26 Abuse screen: Denies threats or abuse. Nutritional screening: No deficits noted. vc1 Tuberculosis screening: No symptoms or risk factors identified. Fall Risk None identified. Assessment: 02:00 Reassessment: See triage assessment. Reassessment: Patient and/or family updated on vc1 plan of care and expected duration. Pain level reassessed. Patient is alert, oriented x 3, equal unlabored respirations, skin warm/dry/pink. Patient states symptoms have not improved. 04:13 Reassessment: Patient appears in no apparent distress at this time. as6 Vital Signs: 09/03 23:04 BP 84 / 47; Pulse 78; Resp 18; Temp 97.8(O); Pulse Ox 93% on R/A; Weight 45.36 kg (R); lp1 Height 4 ft. 11 in. (149.86 cm); Pain 9/10; 23:06 BP 81 / 69; lp1 09/04 01:00 BP 104 / 64; Pulse 76; Resp 14; Pulse Ox 95% on R/A; vc1 04:08 BP 129 / 104; Pulse 68; Resp 14 S; Pulse Ox 100% on R/A; as6 09/03 23:04 Body Mass Index 20.20 (45.36 kg, 149.86 cm) lp1 ED Course: 09/03 23:00 Patient arrived in ED. kz 23:06 Triage completed. lp1 23:06 Arm band placed on left wrist. lp1 09/04 00:50 Fritz Soto NP is PHCP. pm1 00:50 Lowell Apple MD is Attending Physician. pm1 01:00 Bed in low position. Call light in reach. Side rails up X2. quality assurance monitor final on. Pulse vc1 ox on. NIBP on. 01:00 Inserted saline lock: 20 gauge in right forearm, using aseptic technique. Blood vc1 collected. 01:02 Giselle Brooks, OSMAR is Primary Nurse. vc1 02:43 CT Abd/Pelvis - IV Contrast Only In Process Unspecified. EDMS 03:30 Brandon Burgos is Hospitalizing Provider. pm1 04:32 No provider procedures requiring assistance completed. Patient admitted, IV remains in as6 place. Administered Medications: 01:00 Drug: NS 0.9% 1000 ml Route: IV; Rate: 1 bolus; Site: right forearm; vc1 02:54 Follow up: IV Status: Completed infusion; IV Intake: 1000ml vc1 01:00 Drug: Zofran (Ondansetron) 4 mg Route: IVP; Site: right forearm; vc1 02:55 Follow up: Response: No adverse reaction; Marked relief of symptoms; Nausea is decreasedvc1 02:45 Drug: Benadryl (diphenhydrAMINE) 12.5 mg Route: IVP; Site: right forearm; vc1 04:10 Follow up: Response: No adverse reaction as6 02:45 Drug: Reglan (metoCLOPramide) 10 mg Route: IVP; Site: right forearm; vc1 04:10 Follow up: Response: No adverse reaction as6 02:48 Drug: Ketorolac 30 mg Route: IVP; Site: right forearm; vc1 04:10 Follow up: Response: No adverse reaction as6 02:53 Drug: Rocephin (cefTRIAXone) 1 grams Route: IV; Rate: calculated rate; Site: right vc1 forearm; 04:10 Follow up: Response: No adverse reaction; IV Status: Completed infusion; IV Intake: 03hyca1 Intake: 02:54 IV: 1000ml; Total: 1000ml. vc1 04:10 IV: 50ml; Total: 1050ml. as6 Outcome: 03:31 Decision to Hospitalize by Provider. pm1 04:32 Admitted to ER Hold. Please see [facility] for further documentation. as6 04:32 Condition: stable 04:32 Instructed on the need for admit. 15:54 Admitted to Tele via wheelchair, room 408, Report called to lorene matamoros 16:08 Patient left the ED. iw Signatures: Dispatcher [employer] EDMS Nohemy Ibrahim RN RN iw Michelle Gaming RN RN lp1 Fritz Soto, MORTGAGE ADVISOR MORTGAGE ADVISOR pm1 Rober Gan RN RN as6 Norma Maurer RN RN 6 Giselle Brooks RN RN vc1 Whitaker, Smita kz
--- NOTE | 2021-09-04 04:16 | P.HP ---
Certification for Inpatient Patient admitted to: Observation With expected LOS: <2 Midnights Patient will require the following post-hospital care: None Practitioner: I am a practitioner with admitting privileges, knowledge of patient current condition, hospital course, and medical plan of care. Services: Services provided to patient in accordance with Admission requirements found in Title 42 Section 412.3 of the Code of Federal Regulations Patient History Date of Service: 09/04/21 Reason for admission: Pyelonephritis History of Present Illness: Patient is a 41-year-old female with past medical history of hyperthyroidism and methamphetamine abuse who presented to the ED with complaints of left-sided flank pain, fever, headache, urinary frequency and urgency. She is currently residing at [facility]. In the ED she was found to be [id number] systolic. Labs significant for WBC 17.6, elevated liver enzymes, urine greater than 50 WBC and greater than [address] abdomen pelvis showed signs of pyelonephritis. She was given fluids, Zofran, Reglan, Benadryl, Toradol, Rocephin in the ED and had improvement in symptoms. ED provider wishes to admit patient for further evaluation and treatment. Allergies codeine Allergy (Unverified 01/19/16 04:32) Unknown NKDA Allergy (Uncoded 04/16/15 22:08) Unknown Home medications list reviewed: Yes - Past Medical/Surgical History Diabetic: No -: Hyperthyroidism -: Hysterectomy -: Cholecystectomy Psychosocial/ Personal History: Patient is currently residing at [facility]. - Social History Smoking Status: Current every day smoker Alcohol use: Yes CD- Drugs: Yes Caffeine use: Yes Place of Residence: Home Review of Systems General: Fever Musculoskeletal: Back Pain Physical Examination - Physical Exam General: Alert, In no apparent distress, Oriented x3 HEENT: Atraumatic, PERRLA, Mucous membr. moist/pink, EOMI, Sclerae nonicteric Neck: Supple, 2+ carotid pulse no bruit, No LAD, Without JVD or thyroid abnormality Respiratory: Clear to auscultation bilaterally, Normal air movement Cardiovascular: Regular rate/rhythm, Normal S1 S2 Gastrointestinal: Normal bowel sounds, No tenderness Musculoskeletal: No tenderness Integumentary: No rashes Neurological: Normal speech, Normal strength at 5/5 x4 extr, Normal tone, Normal affect - Studies Laboratory Data (last 24 hrs) 09/04/21 01:17: Sodium 134 L, Potassium 4.3, BUN 11, Creatinine 0.58, Glucose 149 H, Total Bilirubin 0.3, AST 67 H, ALT 131 H, Alkaline Phosphatase 56, Lipase 90 09/04/21 01:17: WBC 17.6 H, Hgb 11.6 L, Hct 34.6 L, Plt Count 247 Assessment and Plan - Problems (Diagnosis) (1) Acute pyelonephritis due to bacteria Current Visit: Yes Status: Acute (2) Dehydration Current Visit: Yes Status: Acute (3) Hyperthyroidism Current Visit: No Status: Chronic - Plan -Patient has cystitis and acute pyelonephritis. Was given 1 dose of Rocephin in the ED. Will continue. -Patient was initially-hypotensive in the ED. Improved with fluids. Will continue. -WBC is elevated at 17. Will trend. Urine culture sent. Lactic acid. Monitor for signs of sepsis -Continue ketorolac as needed pain and/or morphine -Continue home medications DVT PPx: Lovenox Code: Full Discharge Plan: Home Plan to discharge in: 24 Hours - Advance Directives Does patient have a Living Will: No Does patient have a Durable POA for Healthcare: No - Code Status/Comfort Care Code Status Assessed: Yes (Full) Critical Care: No Time Spent Managing Pts Care (In Minutes): 70
[2021-09-04] MEDS ORDERED: DIPHENHYDRAMINE 50 MG/ML VIAL IV PRN (04:30)
[2021-09-04] MEDS ORDERED: METOCLOPRAMIDE 10 MG/2mL INJ IV PRN (04:30)
[2021-09-04 04:34] VITALS: BMI 20.2
[2021-09-04] MEDS: NA CHLORIDE 0.9% 1,000 ML IV SCH ×2 (05:00→15:00)
[2021-09-04 05:51] LABS: Thyroid Stimulating Hormone 6.38 uIU/mL (0.360-3.740)
[2021-09-04] MEDS ORDERED: ENOXAPARIN 40 MG/0.4 ML SQ ONE (08:09)
[2021-09-04] MEDS ORDERED: NA CHLORIDE 0.9% 100 ML IV ONE (08:09)
[2021-09-04] MEDS: CEFTRIAXONE 1,000 MG in NA CHLORIDE 0.9% 50 ML IVPB SCH (09:00)
[2021-09-04] MEDS: ENOXAPARIN 40 MG/0.4 ML SQ SCH (09:00)
[2021-09-04] MEDS: KETOROLAC 30 MG/ML INJ IV PRN ×2 (09:00→17:51)
[2021-09-04] MEDS ORDERED: MORPHINE 2 MG/ML SYR ONE (14:36)
[2021-09-04] MEDS: MORPHINE 4 MG/ML SYR IV PRN ×2 (14:47→20:57)
[2021-09-04] MEDS: ONDANSETRON 4 MG/2 ML VIAL IV PRN (14:47)
--- NOTE | 2021-09-04 15:22 | RAD REPORT ---
EXAM DESCRIPTION: CT - Abdomen Pelvis W Contrast - 09/04/2021 4:38 am CLINICAL HISTORY: FLANK PAIN COMPARISON: None Available. TECHNIQUE: CT of the abdomen and pelvis performed following IV administration of iodinated contras t. This exam was performed according to our departmental dose-optimization program, which includes au tomated exposure control, adjustment of the mA and/or kV according to patient size and/or use of iter ative reconstruction technique. FINDINGS: Lung Bases: The visualized lung bases are clear. Bones: No destructive bone lesions identified. Abdomen: Liver: The liver has normal size and density. No intrahepatic biliary dilatation. Gallbladder: Prior cholecystectomy. Spleen, Pancreas, and Adrenal Glands: The spleen, pancreas, and adrenal glands are unremarkable. Kidneys: No hydronephrosis or obstructing calculus. Mild left perinephric fat stranding. There are 2 indeterminate hypodensity in the interpolar and inferior pole of the left kidney measuring 1.9 and 1.1 cm respectively. These structures are cortically based area not definitely cystic. Superior pole left renal cyst. Vasculature: The aorta and IVC have normal caliber and position. The portal vein is patent. The pro ximal visceral and renal arteries are patent. Stomach: The stomach and duodenum have normal course. Other: No free intraperitoneal air. Mildly prominent Mild body wall anasarca. Pelvis: Bladder: Wall thickening of the urinary bladder. Bowel: No dilated loops of large or small bowel. Large amount of stool. Appendix: Normal appendix. Pelvis: No large adnexal masses. IMPRESSION: 1. There are 2 indeterminate cortically based hypodensities in the interpolar and infe rior pole of the left kidney measuring 1.9 and 1.1 cm respectively. These structures are not definite ly cystic. This could be seen with pyelonephritis and evolving inflammatory phlegmon/early abscess fo rmation. Continued close follow-up recommended. 2. Wall thickening of the urinary bladder. These findings could be seen with cystitis. 3. Large amount of stool. Electronically signed by: Jatin Duval 09/04/2021 3:20 AM CDT Due to temporary technical issues with the PACS/Fluency reporting system, reports are being signed by the in house radiologists without review as a courtesy to insure prompt reporting. The interpreting radiologist is fully responsible for the content of the report.
[2021-09-04] MEDS: ACETAMINOPHEN 500 MG TAB PO PRN (16:40)
[2021-09-04] MEDS ORDERED: LORATADINE 10 MG TAB PO PRN (17:06)
--- NOTE | 2021-09-04 19:49 | P.PN ---
Date of Service: 09/04/21 Patient seen and examined. She has persistent fever and low back pain. Diagnosis: Acute pyelonephritis Sepsis without organ dysfunction or damage. Plan: Continue IV Rocephin Urine culture is pending Supportive measures, antiemetics as needed, pain management. Diet as tolerated. Monitor CBC to follow leukocytosis.
[2021-09-05 01:17] VITALS: O2SAT 100
[2021-09-05] MEDS: NA CHLORIDE 0.9% 1,000 ML IV SCH ×3 (03:37→21:00)
[2021-09-05] MEDS: KETOROLAC 30 MG/ML INJ IV PRN ×2 (03:37→15:36)
[2021-09-05] MEDS: ACETAMINOPHEN 500 MG TAB PO PRN (03:40)
[2021-09-05 04:16] LABS: BUN Blood Urea Nitrogen 14 mg/dL (7-18); Bicarbonate 26 mmol/L (21-32); Glucose Level 89 mg/dL (74-106); Potassium 4.7 mmol/L (3.5-5.1); Sodium Level 136 mmol/L (136-145)
[2021-09-05 04:18] LABS: Absolute Lymphocytes (CBC) 1.4 K/uL (0.7-4.9); Hematocrit 32.8 % (36.0-45.0); Lymphocytes % 13.2 % (15.3-44.8); MPV 8.6 fL (7.6-11.3); RBC Red Blood Cell Count 3.52 M/uL (3.86-4.86)
[2021-09-05] MEDS: CEFTRIAXONE 1,000 MG in NA CHLORIDE 0.9% 50 ML IVPB SCH (08:49)
[2021-09-05] MEDS: ENOXAPARIN 40 MG/0.4 ML SQ SCH (08:49)
[2021-09-05] MEDS: MORPHINE 2 MG/ML SYR IV PRN ×2 (11:59→21:06)
--- NOTE | 2021-09-05 15:41 | P.PN ---
Subjective Date of Service: 09/05/21 Chief Complaint: Pyelonephritis Patient states she feels much better today. No fever today, she is tolerating diet. She also stated her flank pain has resolved. Physical Examination - Vital Signs Temperature: 99.1 F Blood Pressure: 105/69 Pulse: 70 Respirations: 18 Pulse Ox (%): 100 - Physical Exam General: Alert, In no apparent distress, Oriented x3 HEENT: Mucous membr. moist/pink Neck: JVD not distended Respiratory: Clear to auscultation bilaterally, Normal air movement Cardiovascular: No edema, Regular rate/rhythm, Normal S1 S2 Capillary refill: <2 Seconds Gastrointestinal: Soft and benign, Non-distended, No tenderness Musculoskeletal: No swelling Integumentary: No rashes Neurological: Normal strength at 5/5 x4 extr Assessment And Plan - Current Problems (Diagnosis) (1) Acute pyelonephritis Current Visit: Yes Status: Acute (2) Hyperthyroidism Current Visit: No Status: Chronic (3) Sepsis Current Visit: Yes Status: Acute - Plan Urine culture is growing gram-negative rods. No fever today. Continue IV Rocephin. Continue IV fluid Diet as tolerated Follow urine culture. Sepsis resolved. Resume Synthroid.
[2021-09-05] MEDS: ONDANSETRON 4 MG/2 ML VIAL IV PRN (21:07)
[2021-09-06] MEDS: NA CHLORIDE 0.9% 1,000 ML IV SCH (03:16)
[2021-09-06] MEDS: ACETAMINOPHEN 500 MG TAB PO PRN (05:34)
[2021-09-06] MEDS: MORPHINE 2 MG/ML SYR IV PRN (05:35)
[2021-09-06] MEDS: KETOROLAC 30 MG/ML INJ IV PRN (05:38)
[2021-09-06] MEDS ORDERED: LEVOTHYROXINE SOD 0.075 MG TAB PO SCH (06:30)
--- NOTE | 2021-09-06 08:40 | P.DS ---
Admission Date: 09/04/21 Discharge Date: 09/06/21 Disposition: ROUTINE DISCHARGE Discharge Condition: FAIR Reason for Admission: Pyelonephritis - Problems (1) Acute pyelonephritis Status: Acute (2) Hyperthyroidism Status: Chronic (3) Sepsis Status: Acute Brief History of Present Illness: Patient is a 41-year-old female with past medical history of hyperthyroidism and methamphetamine abuse who presented to the ED with complaints of left-sided flank pain, fever, headache, urinary frequency and urgency. She is currently residing at [facility]. In the ED, she was found to be [id number] systolic. Labs significant for WBC 17.6, elevated liver enzymes, urine greater than 50 WBC and greater than [address] abdomen pelvis showed signs of pyelonephritis. She was given fluids, Zofran, Reglan, Benadryl, Toradol, Rocephin in the ED and had improvement in symptoms. Patient admitted for further management. Hospital Course: Patient admitted to the medical floor and treated with IV Rocephin for acute pyelonephritis. She was febrile within the first 24 hours of hospitalization but patient. She had no more fever for 48 hours. Urine culture grew pansensitive E. coli. Patient blood pressure responded to IV fluid resuscitation and it was stable during the rest of the hospital stay. She has clinically improved, tolerated diet and ambulatory. Patient is discharged to continue antibiotics for total of 14 days. Vital Signs/Physical Exam: Temp Pulse Resp BP Pulse Ox 98 F 65 19 126/69 99 09/06/21 04:00 09/06/21 04:00 09/06/21 04:00 09/06/21 04:00 09/06/21 04:00 General: Alert, In no apparent distress, Oriented x3 HEENT: Mucous membr. moist/pink Neck: Supple, No Thyromegaly Respiratory: Clear to auscultation bilaterally, Normal air movement Cardiovascular: No edema, Regular rate/rhythm, Normal S1 S2 Capillary refill: <2 Seconds Gastrointestinal: Normal bowel sounds, Soft and benign, Non-distended, No tenderness Musculoskeletal: No swelling, No tenderness Integumentary: No rashes, No erythema, No cyanosis Neurological: Normal gait, Normal strength at 5/5 x4 extr Laboratory Data at Discharge: WBC 10.3 K/uL (4.3-10.9) D 09/05/21 03:22 Hgb 10.9 g/dL (12.0-15.0) L 09/05/21 03:22 Hct 32.8 % (36.0-45.0) L 09/05/21 03:22 Plt Count 200 K/uL (152-406) 09/05/21 03:22 Sodium 136 mmol/L (136-145) 09/05/21 03:22 Potassium 4.7 mmol/L (3.5-5.1) 09/05/21 03:22 BUN 14 mg/dL (7-18) 09/05/21 03:22 Creatinine 0.46 mg/dL (0.55-1.3) L 09/05/21 03:22 Glucose 89 mg/dL (74-106) 09/05/21 03:22 Total Bilirubin 0.3 mg/dL (0.2-1.0) 09/04/21 01:17 AST 67 U/L (15-37) H 09/04/21 01:17 ALT 131 U/L (12-78) H 09/04/21 01:17 Alkaline Phosphatase 56 U/L (45-117) 09/04/21 01:17 Lipase 90 U/L (73-393) 09/04/21 01:17 Home Medications: Citalopram Hydrobromide [Celexa] 20 mg PO DAILY 09/04/21 Levothyroxine Sodium [Levothyroxine] 75 mcg PO DAILY 09/04/21 Cefpodoxime Proxetil [Vantin] 200 mg PO BID #14 tablet 09/06/21 New Medications: Cefpodoxime Proxetil [Vantin] 200 mg PO BID #14 tablet Diet: Regular Activity: Ad aury Time spent managing pt's care (in minutes): 36
[2021-09-06] MEDS: CEFTRIAXONE 1,000 MG in NA CHLORIDE 0.9% 50 ML IVPB SCH (08:49)
[2021-09-06] MEDS: ENOXAPARIN 40 MG/0.4 ML SQ SCH (08:50)
[2021-09-06] MEDS: CITALOPRAM 10 MG TABLET PO SCH ×2 (08:50→08:51)
[2021-09-06 10:16] VITALS: BP 106/70; TEMP 97.4
[2021-09-10 09:59] LABS: Urine Blood 3+ (Negative); Urine Glucose Negative (Negative); Urine Protein 2+ (Negative); Urine Specific Gravity >=1.030 (1.005-1.030)
== END 2021-09-06 10:08 | disposition home or self-care (01) | DRG 872 ==
LOC: ER 22:59 → ERHOLD 09-04 04:09 → OBSVTOIN 09-04 13:14 → 4TH 09-04 16:02
PROVIDERS: ADMIT Internal Medicine; ATTEND Internal Medicine
DX: A41.9 Sepsis, unspecified organism (principal); N10 Acute pyelonephritis; B96.20 Unspecified Escherichia coli [E. coli] as the cause of diseases classified elsewhere; E05.90 Thyrotoxicosis, unspecified without thyrotoxic crisis or storm; F15.21 Other stimulant dependence, in remission; Z20.822 Contact with and (suspected) exposure to COVID-19
CPT/HCPCS: 36415; 74177; 80048; 80053; 81003; 81015; 83605; 83690; 84439; 84443; 85025; 87077; 87086; 87088; 87186; 96361; 96365; 96375; 99285; G0378; J1200; J1650; J2270; J2405; J2765; J7030; Q9967; U0003